=== PATIENT | male | born 1945 | race Caucasian/White ===

== ENCOUNTER 2018-02-15 10:14 | Emergency (ER) | payer MEDICARE, MEDICAID ==
[~2018-02-15] VITALS: Ht 177.8 cm; Wt 96.0 kg
[~2018-02-15 10:14] MED LIST: ELIQUIS5 MG PO; LISINOPRIL10 MG PO; NORCO1 TA1 PO; NORVASC2.5 MG PO
[2018-02-15] MEDS ORDERED: MOTRIN400 MG PO (10:45)
[2018-02-15] MEDS ORDERED: CYCLOBENZAPR5 MG PO (10:45)
[2018-02-15] MEDS ORDERED: VOLTAREN1%GEL TOP (10:45)
[2018-02-15 10:59] VITALS: BP 140/95
== END 2018-02-15 10:59 | disposition home or self-care (01) ==
LOC: ED 10:14
DX: M54.41 Lumbago with sciatica, right side (principal)

== ENCOUNTER 2021-05-14 08:36 | Emergency (ER) | payer MEDICARE, MEDICAID ==
[~2021-05-14] VITALS: Ht 177.8 cm; Wt 80.0 kg
[~2021-05-14 08:36] MED LIST changes: +CYCLOBENZAPR5 MG PO; +MOTRIN400 MG PO; +VOLTAREN1%GEL TOP
[2021-05-14] MEDS ORDERED: AMOXICILLIN500 M2 PO (10:23)
[2021-05-14 10:25] VITALS: BP 140/63
== END 2021-05-14 10:25 | disposition home or self-care (01) ==
LOC: ED 08:36
DX: J06.9 Acute upper respiratory infection, unspecified (principal); H66.91 Otitis media, unspecified, right ear; I10 Essential (primary) hypertension; I48.91 Unspecified atrial fibrillation

== ENCOUNTER 2022-07-17 10:23 | Emergency (ER) | payer MEDICARE, MEDICAID ==
[2022-07-17] VITALS (8 sets, daily range): BP systolic 141–155; BP diastolic 60–89
[~2022-07-17] VITALS: Ht 185.4 cm; Wt 91.0 kg
[~2022-07-17 10:23] MED LIST changes: +AMOXICILLIN500 M2 PO
== END 2022-07-17 12:42 | disposition home or self-care (01) ==
LOC: ED 10:23
DX: S90.121A Contusion of right lesser toe(s) without damage to nail, initial encounter (principal); I10 Essential (primary) hypertension; I48.91 Unspecified atrial fibrillation; W07.XXXA Fall from chair, initial encounter; Y93.89 Activity, other specified; Y92.009 Unspecified place in unspecified non-institutional (private) residence as the place of occurrence of the external cause

== ENCOUNTER 2023-11-11 17:23 | Emergency (ER) | payer MEDICARE ==
[~2023-11-11] VITALS: Ht 185.4 cm; Wt 79.4 kg
[2023-11-11] VITALS (9 sets, daily range): BP systolic 150–172; BP diastolic 69–90
[~2023-11-11 17:23] MED LIST changes: +ALL DAY10 MG PO
[2023-11-11] MEDS ORDERED: ASPIRIN 81 MG/TAB PO ONE (17:30)
[2023-11-11 18:10] LABS: BASO% 0.5 % (0-3); EOS% 3.7 % (0-8); IMMATURE GRANULOCYTES 0.2 % (0.0-5.0); LYMPH% 30.8 % (15-41); MEAN CORPUSCULAR HGB 29.6 pG CALC (26.0-32.0); MEAN CORPUSCULAR HGB CONC 32.6 g/dL CAL (32.0-36.0); MONO% 10.1 % (2-13); NEUT# 3.25 thou/uL (1.82-7.42); NEUT% 54.7 % (42-76); RED BLOOD COUNT 4.22 mill/uL (4.70-6.10); RED CELL DISTRI WIDTH 14.6 % (11.5-15.5)
[2023-11-11 18:13] LABS: HEMATOCRIT 38.4 % (39.0-50.0); HEMOGLOBIN 12.5 g/dl (14.0-18.0)
[2023-11-11 18:27] LABS: ALBUMIN 4.6 g/dL (3.2-5.0); ALKALINE PHOSPHATASE 72 u/l (38-126); ANION GAP 10 (6-22 (CALC)); BILIRUBIN, TOTAL 1.1 mg/dL (0.2-1.3); BUN 15 mg/dL (8-23); BUN/CREATININE RATIO 15 (12-20 (CALC)); CARBON DIOXIDE 27 mmol/l (22-30); CHLORIDE 107 mmol/l (95-108); ESTIMATED GFR 76 ML/MIN (>=90 (CALC)); LIPASE 64 u/l (23-300); POTASSIUM 4.2 mmol/l (3.5-5.1); SGOT/AST 33 u/l (19-48); SODIUM 140 mmol/l (137-146); TOTAL PROTEIN 8.3 g/dL (6.3-8.2)
[2023-11-11] MEDS ORDERED: DONEPEZIL HYDROC5 MG PO (19:20)
[2023-11-11] MEDS ORDERED: AMLODIPINE BESY10 MG PO (19:39)
[2023-11-11] MEDS ORDERED: COZAAR100 MG PO (19:40)
[2023-11-11] MEDS ORDERED: ARICEPT PO (19:41)
[2023-11-11] MEDS ORDERED: PROTONIX40 M2 PO (19:42)
[2023-11-11] MEDS ORDERED: ALL DAY ALLG10 MG PO (19:42)
== END 2023-11-11 22:50 | disposition home or self-care (01) ==
LOC: ED 17:23
PROVIDERS: Family Medicine
DX: R07.9 Chest pain, unspecified (principal); I71.23 Aneurysm of the descending thoracic aorta, without rupture; I10 Essential (primary) hypertension; I48.91 Unspecified atrial fibrillation; Z87.11 Personal history of peptic ulcer disease
CPT/HCPCS: Q9967

== ENCOUNTER 2023-12-09 05:11 | Emergency (ER) | payer MEDICARE ==
[~2023-12-09] VITALS: Ht 185.4 cm; Wt 82.0 kg
[~2023-12-09 05:11] MED LIST changes: +ALL DAY ALLG10 MG PO; +AMLODIPINE BESY10 MG PO; +ARICEPT PO; +COZAAR100 MG PO; +DONEPEZIL HYDROC5 MG PO; +PROTONIX40 M2 PO
[2023-12-09 05:21] VITALS: BP 150/108
[2023-12-09 05:59] LABS: BASO% 0.6 % (0-3); HEMATOCRIT 38.3 % (39.0-50.0); HEMOGLOBIN 12.3 g/dl (14.0-18.0); IMMATURE GRANULOCYTES 0.2 % (0.0-5.0); MEAN CELL VOLUME 91.8 fL CALC (80.0-100.0); MEAN CORPUSCULAR HGB 29.5 pG CALC (26.0-32.0); MEAN CORPUSCULAR HGB CONC 32.1 g/dL CAL (32.0-36.0); MONO% 10.1 % (2-13); NEUT# 3.12 thou/uL (1.82-7.42); NEUT% 57.1 % (42-76); RED BLOOD COUNT 4.17 mill/uL (4.70-6.10); RED CELL DISTRI WIDTH 13.9 % (11.5-15.5)
[2023-12-09 05:59] LABS: URINE BILIRUBIN - DIPSTICK Negative (NEGATIVE); URINE BLOOD DIPSTICK Trace-intact (NEGATIVE); URINE GLUCOSE - DIPSTICK Negative (NEGATIVE); URINE KETONE Negative (NEGATIVE); URINE LEUK ESTERASE Negative (NEGATIVE); URINE NITRITE - DIPSTICK Negative (Negative); URINE PH 6.5 (4.5-8.0); URINE PROTEIN - DIPSTICK 30 mg/dL (NEG-TRACE); URINE UROBILINOGEN - DIPSTICK 0.2 E.U./dL (0.2)
[2023-12-09 06:09] LABS: URINE COLOR Yellow
[2023-12-09 06:11] LABS: URINE BACTERIA FEW hpf; URINE EPITHELIAL CELLS FEW EPI/hpf (0-FEW); URINE MUCUS FEW hpf (NONE-FEW)
[2023-12-09 06:23] LABS: BILIRUBIN, TOTAL 1.1 mg/dL (0.2-1.3); CREATININE 1.1 mg/dL (0.7-1.3); TOTAL PROTEIN 7.4 g/dL (6.3-8.2)
[2023-12-09 06:25] LABS: POTASSIUM 3.9 mmol/l (3.5-5.1)
[2023-12-09] MEDS ORDERED: TAMSULOSIN0.4 MG PO (06:36)
[2023-12-09 06:49] VITALS: BP 150/108
== END 2023-12-09 06:51 | disposition home or self-care (01) ==
LOC: ED 05:11
PROVIDERS: Family Medicine
DX: R35.0 Frequency of micturition (principal); I10 Essential (primary) hypertension; I48.91 Unspecified atrial fibrillation; I71.9 Aortic aneurysm of unspecified site, without rupture; F03.90 Unspecified dementia, unspecified severity, without behavioral disturbance, psychotic disturbance, mood disturbance, and anxiety